=== PATIENT | male | born 1960 | race Caucasian/White ===

== ENCOUNTER 2016-10-31 09:25 | Inpatient (IN) | payer OTHER ==
[~2016-10-31] VITALS: Ht 182.9 cm; Wt 100.0 kg
[2016-10-31] VITALS (10 sets, daily range): BP systolic 128–160; BP diastolic 75–99; PULSE 73–86; RESP 16–20; TEMP 95.5–98.2; O2SAT 95–98
[~2016-10-31 09:25] MED LIST: HALO10 PO; HYDR50 PO; LISI-363 PO; SERO200T PO
[2016-10-31] MEDS ORDERED: SODIUM CHLOR 0.9% 1000 ML INJ 1,000 ML IV ONE (09:45)
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
--- NOTE | 2016-10-31 10:06 | RADRPT ---
EXAM DATE/TIME: 10/31/2016 09:53 [facility] COMPARISON: No previous studies available for comparison. INDICATIONS : Altered mental status RADIATION DOSE: 42.32 CTDIvol (mGy) MEDICAL HISTORY : Hypertension. SURGICAL HISTORY : None. ENCOUNTER: Initial ACUITY: 1 day PAIN SCALE: 0/10 LOCATION: cranial TECHNIQUE: Multiple contiguous axial images were obtained of the head. Using automated exposure control and adj ustment of the mA and/or kV according to patient size, radiation dose was kept as low as reasonably a chievable to obtain optimal diagnostic quality images. FINDINGS: CEREBRUM: The ventricles are normal for age. No evidence of midline shift, mass lesion, hemorrhage or acute in farction. No extra-axial fluid collections are seen. POSTERIOR FOSSA: The cerebellum and brainstem are intact. The 4th ventricle is midline. The cerebellopontine angle i s unremarkable. EXTRACRANIAL: The visualized portion of the orbits is intact. SKULL: The calvaria is intact. No evidence of skull fracture. CONCLUSION: Unremarkable exam. Thaddeus Galindo MD on October 31, 2016 at 10:02 Board Certified Radiologist. This report was verified electronically.
[2016-10-31 10:07] LABS: BASOPHIL # 0.1 TH/MM3 (0-0.2); BASOPHIL % 1.3 % (0.0-2.0); EOSINOPHIL # 0.1 TH/MM3 (0-0.4); EOSINOPHIL % 1.1 % (0.0-4.0); HEMATOCRIT 42.5 % (39.0-51.0); HEMO FLAGS DIFF FINAL; LYMPH % 28.8 % (9.0-44.0); MEAN CELL VOLUME 94.9 FL (80.0-100.0); MEAN CORPUSCULAR HEMOGLOBIN 33.3 PG (27.0-34.0); NEUT % 57.8 % (16.0-70.0); PLATELET COUNT 138 TH/MM3 (150-450); RED BLOOD COUNT 4.48 MIL/MM3 (4.50-5.90); RED CELL DISTRIBUTION WIDTH 13.5 % (11.6-17.2); WHITE BLOOD COUNT 6.9 TH/MM3 (4.0-11.0)
[2016-10-31 10:23] LABS: ANION GAP 9 MEQ/L (5-15)
[2016-10-31 10:27] LABS: ALKALINE PHOSPHATASE 105 U/L (45-117); ALT (GPT) 366 U/L (12-78); AST (GOT) 240 U/L (15-37); BICARBONATE 23.5 MEQ/L (21.0-32.0); BLOOD UREA NITROGEN 14 MG/DL (7-18); CHLORIDE 103 MEQ/L (98-107); GLOMERULAR FILTRATION RATE 107 ML/MIN (>89); POTASSIUM 4.5 MEQ/L (3.5-5.1); SODIUM (NA) 135 MEQ/L (136-145); TOTAL BILIRUBIN ADULT 1.1 MG/DL (0.2-1.0)
[2016-10-31 10:28] LABS: ACETAMINOPHEN LESS THAN 2.0 MCG/ML (10.0-30.0)
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
[2016-10-31] MEDS ORDERED: ACETAMINOPHEN 325 MG TAB PO PRN (11:30)
[2016-10-31] MEDS ORDERED: NALOXONE HCL 0.4 MG/ML AMP IV PRN (11:30)
[2016-10-31] MEDS ORDERED: ONDANSETRON HCL 4 MG/2 ML VIAL IVP PRN (11:30)
[2016-10-31] MEDS ORDERED: SODIUM CHLORIDE 0.9% FLUSH 5 ML FLUSH FLUSH PRN (11:30)
[2016-10-31] MEDS: ENOXAPARIN SODIUM 40 MG/0.4 ML SYRINGE SQ SCH (12:25)
[2016-10-31] MEDS: SODIUM CHLOR 0.9% 1000 ML INJ 1,000 ML IV SCH (12:32)
--- NOTE | 2016-10-31 13:39 | EKG ---
Date Performed: 10/31/2016 Time Performed: 09:46:55 PTAGE: 56 years EKG: Sinus rhythm EARLY REPOLARIZATION BORDERLINE ECG NO PREVIOUS TRACING DOCTOR: Angel Modi Interpretating Date/Time 10/31/2016 13:37:43
[2016-10-31] MEDS ORDERED: RESP: ALBUTEROL 2.5 MG/3 ML NEB (PRN) NEB (18:15)
[2016-10-31] MEDS ORDERED: DO NOT ADMINISTER ANTICOAGULANTS XX PRN (19:30)
[2016-10-31] MEDS ORDERED: ePHEDrine/NS 50 MG/5 ML SYR IV PRN (19:30)
[2016-10-31] MEDS ORDERED: fentaNYL 2MCG-BUPIV 0.125% INJ 100 ML EPIDURAL SCH (19:30)
[2016-10-31] MEDS ORDERED: NO SYSTEM NARCOTICS XX PRN (19:30)
[2016-10-31 20:35] LABS: AMPHETAMINE, URINE NEG (NEG); BARBITURATES, URINE NEG (NEG); COCAINE, URINE NEG (NEG)
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
[2016-10-31] MEDS: QUEtiapine FUMARATE 200 MG TAB PO SCH (21:07)
[2016-10-31] MEDS: LISINOPRIL 20 MG TAB PO SCH (21:07)
[2016-10-31] MEDS: HALOPERIDOL 10 MG TAB PO SCH (21:07)
[2016-10-31] MEDS: SODIUM CHLORIDE 0.9% FLUSH 5 ML FLUSH FLUSH SCH (21:09)
[2016-11-01] VITALS (8 sets, daily range): BP systolic 127–172; BP diastolic 67–82; PULSE 64–90; RESP 16–19; TEMP 97.2–98.6; O2SAT 94–97
[2016-11-01] MEDS: SODIUM CHLOR 0.9% 1000 ML INJ 1,000 ML IV SCH ×2 (00:33→07:24)
[2016-11-01 07:58] LABS: AUTOMATED NEUTROPHIL # 1.1 TH/MM3 (1.8-7.7); BASOPHIL # 0.1 TH/MM3 (0-0.2); BASOPHIL % 1.6 % (0.0-2.0); EOSINOPHIL # 0.1 TH/MM3 (0-0.4); EOSINOPHIL % 2.4 % (0.0-4.0); HEMATOCRIT 43.8 % (39.0-51.0); HEMO FLAGS DIFF FINAL; LYMPH % 56.2 % (9.0-44.0); LYMPHOCYTE # 2.3 TH/MM3 (1.0-4.8); MEAN CELL VOLUME 95.9 FL (80.0-100.0); MEAN CORPUSCULAR HEMOGLOBIN 33.2 PG (27.0-34.0); MEAN CORPUSCULAR HGB CONC 34.6 % (32.0-36.0); MONO % 11.6 % (0.0-8.0); NEUT % 28.2 % (16.0-70.0); PLATELET COUNT 121 TH/MM3 (150-450); RED BLOOD COUNT 4.57 MIL/MM3 (4.50-5.90); RED CELL DISTRIBUTION WIDTH 13.7 % (11.6-17.2)
[2016-11-01 08:34] LABS: ALKALINE PHOSPHATASE 112 U/L (45-117); ALT (GPT) 324 U/L (12-78); ANION GAP 7 MEQ/L (5-15); AST (GOT) 214 U/L (15-37); BLOOD UREA NITROGEN 15 MG/DL (7-18); CHLORIDE 110 MEQ/L (98-107); GLOMERULAR FILTRATION RATE 133 ML/MIN (>89); SODIUM (NA) 143 MEQ/L (136-145); TOTAL BILIRUBIN ADULT 0.8 MG/DL (0.2-1.0)
[2016-11-01] MEDS ORDERED: INFLUENZA VIRUS VACCINE (QUADRIVALENT) 0.5 ML SYR IM ONE (10:00)
[2016-11-01] MEDS ORDERED: PNEUMOCOCCAL POLYVALENT INJ 25 MCG/0.5 ML SYR IM ONE (10:00)
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
[2016-11-01] MEDS: LISINOPRIL 20 MG TAB PO SCH (11:16)
[2016-11-01] MEDS: ENOXAPARIN SODIUM 40 MG/0.4 ML SYRINGE SQ SCH (11:17)
[2016-11-01] MEDS: HALOPERIDOL 10 MG TAB PO SCH (11:18)
[2016-11-01] MEDS: QUEtiapine FUMARATE 200 MG TAB PO SCH (11:18)
[2016-11-01] MEDS: SODIUM CHLORIDE 0.9% FLUSH 5 ML FLUSH FLUSH SCH (11:19)
[2016-11-01] MEDS ORDERED: HALOPERIDOL 2 MG TAB PO PRN (11:30)
[2016-11-01] MEDS ORDERED: cloNIDine HCL 0.1 MG TAB PO PRN (11:30)
--- NOTE | 2016-11-01 14:35 | PD.CONS ---
Provisional Diagnosis Admission Date Oct 31, 2016 at 11:05 [place] I. Bipolar disorder, most recent episode depressive, PTSD [place] II. Deferred [place] III. HTN, asthma, TBI [place] IV. Poor family support, poor social support, homeless [place] V. 40 History of Present Illness Service Psychiatry Consult Requested By Primary Care Physician No Primary Care Physician HPI The patient is a 56-year-old man, homeless, unemployed, single, with psychiatric history of bipolar disorder, PTSD, multiple psychiatric hospitalizations, last hospitalization was 4 months ago in a hospital in [place], multiple suicidal attempts, he has not been fully compliant with his Seroquel 200 mg previously prescribed by outpatient mental health professional, medical history of HTN, TBI, asthma, who came under the galvan act after reportedly taking 15mg of Klonopin in an attempt to end his life. He purchased this medication on the street. He also expressed suicidal ideations, and expressed the desire to end his life by running into traffic. Patient was consulted to psychiatry to assess depression and current suicidal attempt. Patient was seen for psychiatric evaluation in the observation area of the ER. He was poorly cooperative, covering his head with a blanket with the argument that the light bothers him and he stated that he is very sleepy. Patient reports that for the last month, since he hasn't been taking his medication, and since he has been facing multiple financial and social problems, he has been feeling very depressed, with very low energy, anhedonic, no enjoying life, with frequent crying spells, feeling that the life is not worth living and having constant suicidal thoughts. Yesterday he decided that he could not take it anymore and he overdosed with clonazepam. He says that is no very clear for him the amount that pills that he took, but he states anywhere from 5-20 pills. He is stays that he took them to . At this moment patient continues to be depressed, he endorses suicidal ideation with a plan of leaving the hospital by jumping into traffic. He denies visual and auditory hallucinations. Patient refused to cooperate with cognitive test. He denies the use of illicit substances and he denies the use of alcohol. Review of Systems Constitutional: DENIES: Diaphoretic episodes, Fatigue, Fever, Weight gain, Weight loss, Chills, Dizziness, Change in appetite, Night Sweats Endocrine: DENIES: Heat/cold intolerance, Polydipsia, Polyuria, Polyphagia Eyes: DENIES: Blurred vision, Diplopia, Eye inflammation, Eye pain, Vision loss , Photosensitivity, Double Vision Ears, nose, mouth, throat: DENIES: Tinnitus, Hearing loss, Vertigo, Nasal discharge, Oral lesions, Throat pain, Hoarseness, Ear Pain, Running Nose, Epistaxis, Sinus Pain, Toothache, Odynophagia Respiratory: DENIES: Apneas, Cough, Snoring, Wheezing, Hemoptysis, Sputum production, Shortness of breath Cardiovascular: DENIES: Chest pain, Palpitations, Syncope, Dyspnea on Exertion , PND, Lower Extremity Edema, Orthopnea, Claudication Genitourinary: DENIES: Sexual dysfunction, Urinary frequency, Urinary incontinence, Urgency, Hematuria, Dysuria, Nocturia, Penile Discharge, Testicular Pain, Testicular Swelling Musculoskeletal: DENIES: Joint pain, Muscle aches, Stiffness, Joint Swelling, Back pain, Neck pain Integumentary: DENIES: Abnormal pigmentation, Nail changes, Pruritus, Rash Hematologic/lymphatic: DENIES: Bruising, Lymphadenopathy Immunologic/allergic: DENIES: Eczema, Urticaria Neurologic: DENIES: Abnormal gait, Headache, Localized weakness, Paresthesias, Seizures, Speech Problems, Tremor, Poor Balance Psychiatric: COMPLAINS OF: Depression, Suicidal Ideation, DENIES: Anxiety, Confusion, Mood changes, Hallucinations, Agitation, Homicidal Ideation, Delusions Past Family Social History Coded Allergies: Gabapentin (Verified Allergy, Intermediate, Rash, 10/31/16) Current Medications Medications (Trade) Dose Ordered Sig/Gabo Route Start Time Stop Time Status Last Admin (NS 1000 ml Inj) 1,000 ml @ 100 mls/hr Q10H IV 10/31/16 11:24 11/01/16 00:33 (NS Flush) 2 ml UNSCH PRN FLUSH 10/31/16 11:30 (NS Flush) 2 ml BID FLUSH 10/31/16 21:00 11/01/16 11:19 (Tylenol) 650 mg Q4H PRN PO 10/31/16 11:30 10/31/16 19:27 (Zofran Inj) 4 mg Q6H PRN IVP 10/31/16 11:30 (Lovenox Inj) 40 mg Q24H SQ 10/31/16 12:00 11/01/16 11:17 (Narcan Inj) 0.4 mg UNSCH PRN IV 10/31/16 11:30 (SEROquel) 200 mg BID PO 10/31/16 21:00 11/01/16 11:18 (Prinivil) 20 mg Q12HR PO 10/31/16 21:00 11/01/16 23:55 11/01/16 11:16 (Vistaril) 100 mg HS PO 10/31/16 21:00 10/31/16 21:08 (Prinivil) 40 mg DAILY PO 11/02/16 09:00 (Catapres) 0.1 mg Q6H PRN PO 11/01/16 11:30 (Haldol) 2 mg TID PRN PO 11/01/16 11:30 Family History Patient denies family history Social History Patient was born and raised in [place], he currently lives in [place] , he comes frequently to [place], he is unemployed, he is single, he says he is homeless, his highest level of education is GED Physical Exam Vital Signs Vital Signs Date Time Temp Pulse Resp B/P Pulse Ox O2 Delivery O2 Flow Rate FiO2 11/01/16 11:42 98.0 83 18 172/67 96 11/01/16 08:54 21 10/31/16 13:05 Room Air I/O 10/31/16 10/31/16 11/01/16 08:00 16:00 00:00 Intake Total 1000 ml Output Total 1300 ml 450 ml Balance -300 ml -450 ml Mental Status Examination Appearance Patient was completely covered with a blanket during the whole evaluation, his appearance could not be noted, he was just superficially cooperative, avoidant and guarded. Speech: Hesitant Orientation: x3 Memory: Unremarkable Thought Process: Logical, Goal Directed Thought Content: Unremarkable Hallucination Type: None Attention and Concentration: Good Previous Suicide Attempts: Yes Homicidal Ideation: No Previous Homicide Attempts: No Insight: Poor Mood: Sad Motor Activity: Normal gait Assessment & Plan Problem List: (1) Bipolar 1 disorder ICD Code: F31.9 (2) Bipolar disorder with severe depression Assessment & Plan: 56-year-old man, extensive psychiatric history of PTSD, bipolar disorder, multiple hospitalizations, multiple suicide attempts, currently not taking any psychotropics, he has been stable in depressing Seroquel 200 mg daily, history of incarcerations, who was brought to the hospital on the [place] act due to suicidal attempt by overdosing with known amount of Klonopin. Patient is not really very cooperative with the evaluation , he seems to be very irritable, and oppositional and guarded. He reports depressive symptoms of about a month of evolution, he also reports active suicidal ideation with a plan of jumping in front of cars. There are some elements of his psychiatric history and also observed throughout the evaluation that made the patient is suspicious of character structural pathology, but unfortunately there is not information in the records, no collateral information , no complete psychosocial assessment and enough longitudinal observation in order to confirm the suspiciousness. At this moment the safest decision is to admit the patient in psychiatry for safety and stabilization and monitor closely mood and behavior. We'll start the Seroquel 200 mg, as he was taking before with reported good response. Transfer to psychiatric miranda once medically cleared. wax ball knock out worker intervention to complete psychosocial assessment and to try to get collateral information. Consult appreciated. ICD Code: F31.4 Assessment & Plan Estimated LOS: Rasheed Solares MD Nov 01, 2016 14:35
--- NOTE | 2016-11-01 16:25 | HHI.DCPOC ---
Discharge Care Plan Diagnosis: (1) Suicide attempt Goals to Promote Your Health * To prevent worsening of your condition and complications, please take medications as prescribed and participate in your psychiatric care. * To maintain your health at the optimal level, follow-up with GI regarding hepatitis C. Directions to Meet Your Goals Take your medications as prescribed Follow your dietary instruction Follow activity as directed Keep your appointments as scheduled Take your immunizations and boosters as scheduled If your symptoms worsen call your PCP, if no PCP go to Urgent Care Center or Emergency Room Smoking is Dangerous to Your Health. Avoid second hand smoke Call the 24-hour hour crisis hotline for domestic abuse at Thaddeus Graves MD R1 Nov 01, 2016 16:25
[2016-11-01] MEDS ORDERED: HYDR50CA PO (17:10)
[2016-11-01] MEDS ORDERED: LISI-515 PO (17:10)
[2016-11-01] MEDS ORDERED: QUET1TAB9 PO (17:10)
--- NOTE | 2016-11-01 18:50 | RADRPT ---
EXAM DATE/TIME: 11/01/2016 17:33 [facility] COMPARISON: No previous studies available for comparison. INDICATIONS : Hepatitis C. Evaluate cirrhosis. MEDICAL HISTORY : Hypertension. Hepatitis B. Hepatitis C. Traumatic brain injury at age 9. Headache. Enlarged prostate. PTSD. Depression. Anxiety. Substance use. Previous suicide attempt. SURGICAL HISTORY : Appendectomy. Orthopedic surgery, right leg. Blood transfusions. ENCOUNTER: Initial ACUITY: 1 day PAIN SCORE: 0/10 LOCATION: Bilateral upper quadrant MEASUREMENTS: LIVER: 15.3 cm length COMMON DUCT: 4 mm RIGHT KIDNEY: 10.9 x 5.4 x 3.9 cm SPLEEN: 10.3 cm length FINDINGS: Mild hepatomegaly is noted. No focal hepatic mass or biliary ductal dilatation is noted. There is h epatopetal flow within the portal vein. The gallbladder contains a gallstone. The wall of the gallbl adder is mildly thickened. If there is clinical concern for acute cholecystitis a hepatobiliary scan may be helpful to confirm cystic duct obstruction. No sonographic You's sign is noted. The stone in the neck of the gallbladder measures 21 mm in greatest dimension. There is poor visualization of the pancreas due to shadowing bowel gas. The right kidney is unremarkable without hydronephrosis or a solid mass. CONCLUSION: 1. Thick-walled gallbladder containing a 21 mm shadowing stone in the neck. If there is clinical con cern for acute cholecystitis a hepatobiliary scan may be helpful to confirm cystic duct obstruction. 2. Mild hepatomegaly. Lefty Fuentes MD on November 01, 2016 at 18:43 Board Certified Radiologist. This report was verified electronically.
--- NOTE | 2016-11-01 19:38 | EKG ---
Date Performed: 11/01/2016 Time Performed: 10:19:42 PTAGE: 56 years EKG: Sinus rhythm When compared to previous tracing, early repolarization Changes Are less evident. NORMAL ECG PREVIOUS TRACING : 10/31/2016 [id number] DOCTOR: Marlo Chawla Interpretating Date/Time 11/01/2016 19:36:39
[2016-11-02] MEDS ORDERED: LISINOPRIL 20 MG TAB PO SCH (09:00)
[2016-11-06 10:57] LABS: BATH SALTS (MDPV) UR NEG (NEG); ECSTASY (MDMA) UR NEG (NEG); HEROIN (6-ACETYLMORPHINE) UR NEG (NEG); K2 SPICE UR NEG (NEG); OBMETHADONE UR NEG (NEG); OXYCODONE (PERCODAN) NEG (NEG); PHENCYCLIDINE URINE NEG (NEG)
== END 2016-11-01 22:43 | DRG 918 ==
LOC: NEPE 09:25 → NEDA 11:05 → NEPHCDU 15:56 → OBSVTOIN 11-01 14:47
PROVIDERS: ADMIT Family Medicine; ATTEND Family Medicine
DX: T42.4X2A Poisoning by benzodiazepines, intentional self-harm, initial encounter (principal); I10 Essential (primary) hypertension; F31.4 Bipolar disorder, current episode depressed, severe, without psychotic features; B19.20 Unspecified viral hepatitis C without hepatic coma; J45.909 Unspecified asthma, uncomplicated; S01.81XA Laceration without foreign body of other part of head, initial encounter; Y92.9 Unspecified place or not applicable; E78.00 Pure hypercholesterolemia, unspecified; G40.909 Epilepsy, unspecified, not intractable, without status epilepticus; G89.29 Other chronic pain; F17.200 Nicotine dependence, unspecified, uncomplicated; Z87.820 Personal history of traumatic brain injury; Z91.5 Personal history of self-harm; Z59.0 Homelessness; F43.10 Post-traumatic stress disorder, unspecified; F25.9 Schizoaffective disorder, unspecified
CPT/HCPCS: 70450; 76705; 80053; 80074; 80307; 80320; 80329; 85025; 90732; 93005; 96360; G0378; G0480; G0481; G8987-GP; G8988-GP; J1650; J7030

== ENCOUNTER 2016-11-01 22:50 | Inpatient (IN) | payer SELFPAY ==
[~2016-11-01] VITALS: Ht 182.9 cm; Wt 96.8 kg
[~2016-11-01 22:50] MED LIST changes: -HALO10 PO; -HYDR50 PO; +HYDR50CA PO; -LISI-363 PO; +LISI-515 PO; +QUET1TAB9 PO; -SERO200T PO
[2016-11-01] MEDS ORDERED: ALUMINUM/MAGNESIUM/SIMETH 30 ML CUP PO PRN (23:15)
[2016-11-01] MEDS ORDERED: diphenhydrAMINE HCL 50 MG CAP PO PRN (23:15)
[2016-11-01] MEDS ORDERED: LORazepam 2 MG/ML VIAL IM PRN (23:15)
[2016-11-01] MEDS ORDERED: BENZTROPINE MESYLATE 2 MG/2 ML VIAL IM PRN (23:15)
[2016-11-01] MEDS ORDERED: BENZTROPINE MESYLATE 1 MG TAB PO PRN (23:15)
[2016-11-01] MEDS ORDERED: LORazepam 1 MG TAB PO PRN (23:15)
[2016-11-01] MEDS ORDERED: hydrOXYzine HCL 50 MG TAB PO PRN (23:15)
[2016-11-01] MEDS ORDERED: MAGNESIUM HYDROXIDE SUSP 30 ML CUP PO PRN (23:15)
[2016-11-02 01:19] VITALS: BP 142/86; PULSE 80; RESP 16; TEMP 97.8; O2SAT 97
[2016-11-02 06:15] VITALS: BP 130/65; PULSE 68; RESP 18; TEMP 97.6; O2SAT 96
[2016-11-02] MEDS: LISINOPRIL 20 MG TAB PO SCH (09:00)
[2016-11-02] MEDS: REMOVE OLD PATCH T-DERMAL SCH (09:00)
[2016-11-02] MEDS ORDERED: QUEtiapine FUMARATE 200 MG TAB PO SCH (09:00)
[2016-11-02] MEDS: NICOTINE 21 MG/24 HR PATCH T-DERMAL SCH (09:00)
[2016-11-02 09:40] LABS: HDL CHOLESTEROL 36.1 MG/DL (40.0-60.0); LDL CHOLESTEROL 74 MG/DL (0-99)
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
[2016-11-02] MEDS ORDERED: PILL SPLITTER OTHER PRN (11:45)
[2016-11-02] MEDS: QUEtiapine FUMARATE 100 MG TAB PO SCH ×2 (13:23→21:00)
[2016-11-02] MEDS: ACETAMINOPHEN 325 MG TAB PO PRN (14:22)
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
[2016-11-02 19:36] VITALS: BP 123/70; PULSE 106; RESP 18; TEMP 98.7; O2SAT 96
[2016-11-02] MEDS ORDERED: QUEtiapine FUMARATE 100 MG TAB PO SCH (21:00)
[2016-11-02] MEDS: diphenhydrAMINE HCL 50 MG CAP PO PRN (21:18)
[2016-11-03 05:49] VITALS: BP 159/83; PULSE 81; RESP 18; TEMP 97.6; O2SAT 97
[2016-11-03] MEDS: NICOTINE 21 MG/24 HR PATCH T-DERMAL SCH (08:52)
[2016-11-03] MEDS: QUEtiapine FUMARATE 100 MG TAB PO SCH ×2 (08:52→20:16)
[2016-11-03] MEDS: REMOVE OLD PATCH T-DERMAL SCH (08:54)
[2016-11-03] MEDS: LISINOPRIL 20 MG TAB PO SCH (08:54)
[2016-11-03 09:32] LABS: HEMOGLOBIN A1a 0.9 %; HEMOGLOBIN A1b 0.8 %; HEMOGLOBIN Ao 85.8 %; HEMOGLOBIN F 0.9 %; HEMOGLOBIN LA1C 2.1 %; HEMOGLOBIN P3 3.4 %
--- NOTE | 2016-11-03 13:38 | HHI.PYPN ---
Subjective Remarks Patient was seen and case discussed with nursing. Patient is pleasant and cooperative with exam. She signed a right of release yesterday and after discussion with me he decided to rescind it. Today patient says his depressed mood is resolved and he denies suicidal ideation intent or plan. Minimizing his suicide attempt. Behaving well on the unit. Compliant with medications Objective Alert: Yes [place]: Person, Place, Date, Situation Mood: Depressed Affect: Blunted Memory Intact: Immediate Hallucinations: Other Delusions: No Delusion Type: Other Suicidal: Ideation (denies) Homicidal: Ideation (denies) Insight/Judgement Poor Vitals/IOs Vital Signs Date Time Temp Pulse Resp B/P Pulse Ox O2 Delivery O2 Flow Rate FiO2 11/03/16 05:49 97.6 81 18 159/83 97 Assessment & Plan Problem List: (1) Bipolar disorder ICD Code: F31.9 Assessment & Plan Continue current treatment plan Justification for Cont. Inpt. Patient will decompensate in a less restrictive setting Request HC Surrog/Guard Advoc?: No Problem Qualifiers (1) Bipolar disorder: Qualified Code: F31.4 - Bipolar disorder, current episode depressed, severe, without psychotic features Benedicto Peña DO Nov 03, 2016 13:38
[2016-11-03] MEDS: hydrOXYzine HCL 50 MG TAB PO PRN ×2 (18:20→20:36)
[2016-11-03 19:45] VITALS: BP 150/78; PULSE 76; RESP 18; TEMP 97.6; O2SAT 97
[2016-11-03] MEDS: diphenhydrAMINE HCL 50 MG CAP PO PRN (20:16)
[2016-11-04] MEDS: hydrOXYzine HCL 50 MG TAB PO PRN ×2 (04:48→20:41)
[2016-11-04 05:54] VITALS: BP 152/88; PULSE 77; RESP 16; TEMP 97.4; O2SAT 96
[2016-11-04] MEDS: REMOVE OLD PATCH T-DERMAL SCH (09:00)
[2016-11-04] MEDS: QUEtiapine FUMARATE 100 MG TAB PO SCH ×2 (10:06→20:42)
[2016-11-04] MEDS: LISINOPRIL 20 MG TAB PO SCH (10:07)
[2016-11-04] MEDS: NICOTINE 21 MG/24 HR PATCH T-DERMAL SCH (10:07)
[2016-11-04] MEDS: ACETAMINOPHEN 325 MG TAB PO PRN (10:07)
--- NOTE | 2016-11-04 12:04 | HHI.PYPN ---
Subjective Remarks Patient seen and examined with counselor and nurse. Chart reviewed. Case discussed with nursing staff. No behavioral problems noted. On my examination today the patient reports that he is feeling much better. He says that prior to coming in to the hospital he thinks he was on "a little bit of a pity democrat. " He denies any suicidal ideation at this time and says "I never wanted to kill myself to begin with. It's just difficult being homeless." He denies side effects from medications. He says that his sister is planning to take him into her house in [place] tomorrow. Review of Systems Other Complains of some chronic musculoskeletal pain but otherwise has no somatic complaints. Objective Alert: Yes [place]: Person, Place, Date Mood: Calm Affect: Euthymic Memory Intact: Comment (intact on clinical exam) Hallucinations: Other (denies AVH) Delusions: No Delusion Type: Other (no evident delusional material) Suicidal: Ideation (denies suicidal ideation) Homicidal: Ideation (no homicidal ideation) Insight/Judgement Fair Remarks No abnormal motor movements noted. No signs of withdrawal noted. Thought process linear. Speech within normal limits for rate, tone and volume. Labs Labs reviewed. Vitals/IOs Vital Signs Date Time Temp Pulse Resp B/P Pulse Ox O2 Delivery O2 Flow Rate FiO2 11/04/16 05:54 97.4 77 16 152/88 96 Assessment & Plan Problem List: (1) Bipolar disorder ICD Code: F31.9 Assessment & Plan Patient pleased with current psychotropics. Continue Seroquel as ordered. Continue other medications and care as ordered. Justification for Cont. Inpt. Final discharge planning Discharge Planning Monitor overnight. Anticipate discharge tomorrow. Request HC Surrog/Guard Advoc?: No Problem Qualifiers (1) Bipolar disorder: Qualified Code: F31.4 - Bipolar disorder, current episode depressed, severe, without psychotic features Charbel Hernadez MD Nov 04, 2016 12:04
[2016-11-04 18:00] VITALS: BP 120/72; PULSE 94; RESP 18; TEMP 98.3; O2SAT 96
[2016-11-04] MEDS: diphenhydrAMINE HCL 50 MG CAP PO PRN (20:41)
[2016-11-04] MEDS: DOCUSATE SODIUM 100 MG CAP PO SCH (20:42)
[2016-11-05] MEDS: hydrOXYzine HCL 50 MG TAB PO PRN (04:24)
[2016-11-05 05:32] VITALS: BP 126/91; PULSE 96; RESP 18; TEMP 98; O2SAT 95
[2016-11-05] MEDS: NICOTINE 21 MG/24 HR PATCH T-DERMAL SCH (09:00)
[2016-11-05] MEDS: REMOVE OLD PATCH T-DERMAL SCH (09:00)
[2016-11-05] MEDS: DOCUSATE SODIUM 100 MG CAP PO SCH (09:02)
[2016-11-05] MEDS: LISINOPRIL 20 MG TAB PO SCH (09:02)
[2016-11-05] MEDS: QUEtiapine FUMARATE 100 MG TAB PO SCH (09:03)
[2016-11-05] MEDS ORDERED: HYDR50TA94 PO (09:39)
[2016-11-05] MEDS ORDERED: QUET1TAB8 PO (09:39)
--- NOTE | 2016-11-05 10:26 | HHI.DS ---
Psychiatry Discharge Summary Inpatient Psychiatric care?: Yes Advance Directive: No Reason Not Provided: patient refused education Mental Health AdvanceDirective: No Health Care Proxy: No Admission Admission Date Nov 01, 2016 at 22:50 Admission Diagnosis: (1) Bipolar disorder ICD Code: F31.9 Brief History Mr. Akers is a 56-year-old male with a reported history of bipolar disorder who presented initially following a reported Klonopin overdose. He was medically admitted and seen in consultation by Dr. Mills. Now that he has been medically cleared he has been transferred to the inpatient psychiatric unit under a [employer] act. I have reviewed the electronic medical record including Dr. Mills's documentation. Patient seen and examined. Chart reviewed. Case discussed with nursing staff. Of note, in reviewing the chart, I see patient's urine toxicology was negative for benzodiazepines despite his reported overdose. On my examination today, the patient persists in saying that he took about 15 Klonopin because "I was sick of living." He says he's been feeling this way for the last month or so. He endorses low mood, poor sleep and hopeless/worthless feelings. He continues to endorse suicidal ideation although he has no specific plan or intent at this time. He says "I wish I would have . I have nothing to live for." He initially denies auditory hallucinations but then says he periodically experiences vague "voices". He does not appear int stim. He also says he experiences racing thoughts and feels like he is being followed at night. No other hallucinatory material. No delusions. No hypomanic or manic symptoms. The remainder of the psychiatric ROS is negative. Past psychiatric history: Reports a history of bipolar disorder. Not currently under the care of a psychiatrist. He says that he was hospitalized most recently less than a year ago. He reports 3 prior suicide attempts. He does say that the Seroquel helps him. Family history: Patient reports that his brother began using heroin upon returning from [place]. Otherwise no family psychiatric history to speak of. Chemical dependency history: Patient denies a history of abuse of drugs or alcohol. Social history: Patient reports he has an eighth grade education. He has been applying for disability for the last 5 years. He is single with no children. He has no stable housing. He denies any or legal history. Denies any access to guns or firearms. He previously worked as a heating and air conditioning repairman. Tobacco Use In Past 30 Days: No Tobacco Past 30 Days Alcohol Use: Never Hospital Course Patient was admitted to a locked, inpatient psychiatric unit. A general medical consultation was obtained. Appropriate precautions were in place throughout patient's hospital stay. Patient was seen and examined daily on the unit by psychiatry and also visited by counselor. Medications were adjusted. Patient tolerated medications well without side effects. Patient had marked improvement in his presenting psychiatric symptomatology. There was no evidence of any suicidality or violence on the inpatient unit. Patient remained in good behavioral control and was medication compliant. On the day of discharge: Patient seen and examined with counselor, nurse and occupational therapist in treatment team. Chart reviewed. Case discussed with nurse, counselor an occupational therapist. Per nursing staff, no behavioral issues. Per occupational therapist patient is participating very well in groups. On my examination today, the patient reports that he feels much improved and is requesting discharge from the psychiatric unit this morning. He reports his mood is good and I can elicit no depressive or hypomanic/manic symptoms. He denies any suicidal ideation, intent or plan. He denies any homicidal ideation. He denies any audiovisual hallucinations and I can elicit no delusional beliefs. He is future oriented with several near and long-term goals. He denies side effects from medications. He has no somatic complaints. Weighing the acute, chronic, and protective factors and based on the available evidence, I staging technician to a reasonable degree of medical certainty that the patient is at low imminent risk of harm to self or others from a mental illness and his level of function is adequate for outpatient care. I will discharge the patient today in stable condition with psychiatric follow-up as arranged by counselor. Patient is also to follow-up with primary care. I counseled the patient to abstain from substances of abuse and have likewise counseled him regarding warning signs for need to return to the psychiatric emergency room as part of the general safety plan. Results Blood Pressure 126 / 91 Vital Signs Date Time Temp Pulse Resp B/P Pulse Ox O2 Delivery O2 Flow Rate FiO2 11/05/16 05:32 98.0 96 18 126/91 95 Laboratory Results Test 11/02/16 08:48 Hemoglobin A1c 5.8 % (4.3-6.0) Triglycerides Level 284 MG/DL (42-150) Cholesterol Level 167 MG/DL (120-200) LDL Cholesterol 74 MG/DL (0-99) HDL Cholesterol 36.1 MG/DL (40.0-60.0) Summary of Procedures None done Imaging None done Pending results at discharge: No Medications # of Antipsychotic meds at D/C: 1 Approp Antipsych med options 1 - Minimum of three failed multiple trials of monotherapy. 2 - Documented plan to taper to monotherapy due to previous use of multiple meds OR cross-taper in progress at D/C. 3 - Documentation of augmentation of Clozapine. 4 - Justification other than those listed in allowable values 1-3, document here : Discharge Discharge Date: Nov 05, 2016 Discharge Diagnosis: (1) Bipolar disorder, in partial remission, most recent episode depressed Diagnosis: Principal ICD Code: F31.75 GAF on discharge is 60. Mental Status Exam at Disch Patient is casually dressed. He is well groomed. He is awake and alert and oriented 3. No abnormal motor movements noted. Speech is within normal limits for rate, tone and volume. Language and fund of knowledge are average. Mood is good and affect is full and reactive. Thought processes linear. No loosening of associations. No evident delusions. Denies suicidal ideation, intent or plan. Denies homicidal ideation, intent or plan. Insight and judgment are fair. Pt Condition on Discharge: Stable Discharge Disposition: Discharge Home Discharge Instructions Diet Instructions: As Tolerated, No Restrictions Activities you can perform: Weight Bearing as Mikayla Scheduled Appointment: [facility]. Appointment Date: Nov 05, 2016 Appointment Time: 2:30pm New Medications: Hydroxyzine HCl (Hydroxyzine HCl) 50 Mg Tab 50 MG PO Q6H PRN ANXIETY #15 Ref 1 TAB Quetiapine (Quetiapine) 100 Mg Tab 250 MG PO BID Mental Health Days 15 Ref 1 TAB Continued Medications: Lisinopril (Lisinopril) 20 Mg Tab 40 MG PO DAILY #30 TAB Discontinued Medications: Hydroxyzine Pamoate (Hydroxyzine Pamoate) 50 Mg Cap 100 MG PO HS #30 CAP Quetiapine (Quetiapine) 200 Mg Tab 200 MG PO BID #60 TAB Discharge Time <= 30 minutes Discharge/Advance Care Plan Health Problems: (1) Bipolar disorder Goals to promote your health * To prevent worsening of your condition and complications * To maintain your health at the optimal level Directions to meet your goals Take your medications as prescribed Follow your dietary instruction Follow activity as directed Keep your appointments as scheduled Take your immunizations and boosters as scheduled If your symptoms worsen call your PCP, if no PCP go to Urgent Care Center or Emergency Room For 14/04 questions related to your inpatient stay or results of tests pending at discharge, please contact Dr. Charbel Hernadez at Smoking is Dangerous to Your Health. Avoid second hand smoking Problem Qualifiers (1) Bipolar disorder: Qualified Code: F31.4 - Bipolar disorder, current episode depressed, severe, without psychotic features Charbel Hernadez MD Nov 05, 2016 10:26
== END 2016-11-05 13:30 | disposition home or self-care (01) | DRG 885 ==
LOC: H270 22:50
PROVIDERS: ADMIT Psychiatry & Neurology Psychiatry; ATTEND Psychiatry & Neurology Psychiatry
DX: F31.75 Bipolar disorder, in partial remission, most recent episode depressed (principal); I10 Essential (primary) hypertension; B19.20 Unspecified viral hepatitis C without hepatic coma; Z59.0 Homelessness; Z87.820 Personal history of traumatic brain injury; F17.210 Nicotine dependence, cigarettes, uncomplicated
CPT/HCPCS: 80061; 83036; Q0163

== ENCOUNTER 2016-11-05 23:15 | Emergency (ER) | payer SELFPAY ==
[~2016-11-05] VITALS: Ht 185.4 cm; Wt 95.0 kg
[~2016-11-05 23:15] MED LIST changes: +HYDR50TA94 PO; +QUET1TAB8 PO
[2016-11-05 23:34] VITALS: BP 110/67; PULSE 106; RESP 20; TEMP 98.2; O2SAT 99
== END 2016-11-05 23:30 | disposition left against medical advice (07) ==
LOC: NEDAMB 23:15
DX: R07.9 Chest pain, unspecified (principal)
CPT/HCPCS: 99281